=== PATIENT | male | born 1995 | race African-American/Black ===

== ENCOUNTER 2024-07-08 10:04 | Emergency (ER) | payer SELFPAY ==
[2024-07-08 10:06] VITALS: BP 123/71
--- NOTE | 2024-07-08 11:29 | ED.GENMED ---
History of Present Illness
General
Chief Complaint: Breathing Problem
Source: patient
Time Seen by Provider: 07/08/24 11:08
History of Present Illness
History of Present Illness:
20-year-old male presents to the emergency room complaining of shortness of breath, feeling off balance at times. Symptoms open present for the past 3 days. Shortness of breath seem more intense last evening. No chest pain. Patient denies any
fever, chills, nausea, vomiting, sore throat. He does not have any known medical conditions and takes no prescription medications. He denies smoking, alcohol use or drug use.
Phy Exam
Physical Exam
Physical Exam:
General: Awake, Alert, Oriented X3. No acute distress.
Vitals: unremarkable
Head: Atraumatic
Eyes: Pupils equal, EOMI
Throat: Airway intact, no exudates
Neck: Trachea midline
Lungs: Clear and equal b/l
Heart: Regular rate, no murmurs
Abd: Soft, Nontender, No pulsatile mass
Neuro: Cranial nerves intact, muscle strength equal bilaterally, cerebellar exam normal
Skin: Warm, dry, no rash
Extremities: pulses equal b/l, no edema
Course
Orders/Labs/Results
Orders:
Orders
07/08/24 11:28
Electrocardiogram (*1) Urgent
Reason for Study: Shortness of Breath
EKG- Treatment ONCE
CR Chest - 2 Views Urgent
Comment:
Reason For Exam: sob
07/08/24 11:49
Basic Metabolic Panel Urgent
Complete Blood Count/With Diff Urgent
TSH Reflex To Free T4 Urgent
Abnormal Lab Results
07/08/24
11:49
WBC 4.1 L 10^3/uL
(4.8-10.8)
07/08/24 11:49
07/08/24 11:49
Vital Signs
Initial and Last Documented VS:
Initial Vital Signs
Temp Pulse Resp BP Pulse Ox
98.2 F 73 18 123/71 100
07/08/24 10:06 07/08/24 10:06 07/08/24 10:06 07/08/24 10:06 07/08/24 10:06
Last Documented Vital Signs
Temp Pulse Resp BP Pulse Ox
98.2 F 75 16 123/71 99
07/08/24 10:06 07/08/24 12:00 07/08/24 12:00 07/08/24 10:06 07/08/24 12:00
MDM/Problems Addressed
Differential Diagnosis Includes:
Dysrhythmia, PVCs, hypothyroidism, dehydration, anemia
MDM/Problems Addressed:
Patient presents with dizziness, subjective dyspnea. Work appears unremarkable. EKG shows sinus rhythm. Labs are unremarkable. Patient stable for discharge home follow-up with his primary as an outpatient
*Pulse Oximetry
Patient hypoxic: no
*EKG
Interpretation: normal
Heart Rate: 76
Rate: normal
Rhythm: sinus
[place]: normal axis
Interval: normal interval
QRS Pattern: normal QRS
Ischemia: no ischemia
*Roll Operator Interpretation
Rate: normal
Interpretation: normal
Rhythm: sinus
*Critical Care Note
Total Time (30-74mins, 75-104mins- exclusive of procedures): Not Applicable
ED Attending Note
-
Portions of this chart may have been created with voice recognition software.� Occasional wrong word or��sound alike� substitutions may have occurred due to the inherent limitations of voice recognition software.
Discharge Plan
Departure
Patient Disposition: Home (Routine Discharge)
Date of Disposition: 07/08/24
Time of Disposition: 13:33
Patient with high blood pressure during this ER visit?: No
Condition: Good
Discharge Problem:
Acute dyspnea
Instructions: Shortness of Breath (Dyspnea) (DC)
Referrals:
UNKNOWN - PT DOES,NOT KNOW [Family Provider] -
Activity Restrictions/Additional Instructions:
You came to the emergency room for evaluation of shortness of breath. Testing here is essentially normal. In particular your chest x-ray is normal. Your EKG is normal as well. There is no indication for you to need to stay in the hospital. You
are stable for discharge home to follow-up with your family doctor.
Interventions
Interventions:
*Risk Screen - Suicide Last Done: 07/08/24 11:53
*General Assessment Last Done: 07/08/24 11:53
*Neglect/Abuse Screening Last Done: 07/08/24 11:53
ED- Fall Risk Assessment Last Done: 07/08/24 11:53
*ED COVID-19 Vaccine History Last Done: 07/08/24 11:53
*Nursing Disposition Last Done: 07/08/24 13:47
ED- Cardiac Assessment Last Done: 07/08/24 11:53
ED- Pulmonary Assessment Last Done: 07/08/24 11:53
Discharge Date and Time
Discharge Date/Time: 07/08/24 13:48
Print Language: GREEK
[2024-07-08 11:50] VITALS: BMI 25.1
[2024-07-08 11:57] LABS: % Basophils 0.2 % (0-2); % Eosinophils 1.5 % (0-6); % Immature Granulocytes 0.2 % (0-0.5); % Lymphocytes 36.7 % (20.5-51.1); % Monocytes 7.5 % (1.7-9.3); % Neutrophils 53.9 % (42.2-75.2); Absolute Eosinophils 0.1 10^3/uL (0-0.7); Absolute Lymphocytes 1.5 10^3/uL (1.2-3.4); Absolute Monocytes 0.3 10^3/uL (0.1-0.6); Absolute Neutrophils 2.2 10^3/uL (1.4-6.5); Hematocrit 45.8 % (39.0-52.0); Hemoglobin 15.8 g/dL (13.0-18.0); Mean Corp Hgb Conc. 34.5 g/dL (33.0-37.0); Mean Corpuscular Hgb 28.3 pg (27.0-31.0); Mean Corpuscular Volume 81.9 fL (80.0-94.0); Mean Platelet Volume 8.9 fL (7.4-10.4); Nucleated Red Blood Cells % 0 % (-); Platelet Count 217 10^3/uL (130-400); Red Blood Cell Count 5.59 10^6/uL (4.70-6.10); White Blood Cell Count 4.1 10^3/uL (4.8-10.8)
[2024-07-08 12:27] LABS: Blood Urea Nitrogen 19 mg/dl (9-20); Calcium 9.5 mg/dl (8.4-10.2); Carbon Dioxide 28 mmol/L (22-30); Chloride 102 mmol/L (98-107); Estimated Creatinine Clearance 106 ml/min; Glucose 92 mg/dl (70-99); Potassium 4.5 mmol/L (3.5-5.1); Sodium 138 mmol/L (135-145); eGFR > 60.00
[2024-07-08 12:57] LABS: TSH Reflex To Free T4 0.92 uIU/ml (0.47-4.68)
== END 2024-07-08 13:48 | disposition home or self-care (01) ==
LOC: EMR 10:04
PROVIDERS: EMERGENCY PHYSICIAN Emergency Medicine
DX: R06.00 Dyspnea, unspecified (principal)
CPT/HCPCS: 99285; 71046; 80048; 84443; 85025; 93005